=== PATIENT | female | born 1990 | race Caucasian/White ===

== ENCOUNTER 2016-10-09 09:41 | Emergency (ER) | payer OTHER ==
[~2016-10-09] VITALS: Ht 165.1 cm; Wt 80.0 kg
[2016-10-09 09:44] VITALS: Ht 165.1 cm; Wt 80.0 kg
--- NOTE | 2016-10-09 10:55 | ERD ---
ER Documentation Chief Complaint Date/Time DATE: 10/09/16 TIME: 10:49 Chief Complaint 37 WEEKS WITH DIARRHEA HPI This is a 26-year-old female presenting to the emergency department for diarrhea 1 day. Patient is a A2 and is currently 36 weeks with last menstrual period 02/01/2016. Patient has had one loose bowel movement every 2-2-1/2 hours with about 8-9 bowel movements since yesterday. No dark, bloody or mucoid stools. No fevers or chills. No dysuria or hematuria. Patient denies vomiting. No pelvic cramping or abdominal pain. Patient states she has history of one stillbirth and one miscarriage and was told that if she develops diarrhea for over 24 hours that she should go to the emergency room for evaluation. Patient states she has some irregular [place] type contractions. No regular contractions. Patient has no history of preeclampsia or gestational diabetes. Patient's PUBLIC TRANSIT SPECIALIST is Dr. Garcia with last appointment 4 days ago. ROS All systems reviewed and are negative except as per history of present illness. Medications Home Meds Reported Medications [none] No Conflict Check 11/20/10 Allergies Allergies: Coded Allergies: No Known Drug Allergy (Verified Allergy, Unknown, 10/09/16) PMhx/Soc History of Surgery: Yes (back surgery (cyst); caesarian section) Anesthesia Reaction: No Hx Neurological Disorder: No Hx Respiratory Disorders: No Hx Cardiac Disorders: No Hx Psychiatric Problems: No Hx Miscellaneous Medical Probl: No Hx Alcohol Use: No Hx Substance Use: No Hx Tobacco Use: No Smoking Status: Never smoker Physical Exam Vitals Vital Signs Date Time Temp Pulse Resp B/P Pulse Ox O2 Delivery O2 Flow Rate FiO2 10/09/16 09:44 98.1 99 20 113/70 99 Physical Exam Const: No acute distress, alert, smiling during exam Head: Atraumatic Eyes: Normal Conjunctiva ENT: Normal External Ears, Nose and Mouth. Neck: Full range of motion..~ No meningismus. Resp: Clear to auscultation bilaterally. No wheezing, rhonchi or crackles. Cardio: Regular rate and rhythm, no murmurs Abd: Soft, non tender, non distended. Normal bowel sounds Skin: No petechiae or rashes Back: No midline or flank tenderness. No CVA tenderness Ext: No cyanosis, or edema Neur: Awake and alert Psych: Normal Mood and Affect Procedures/MDM MDM: 26-year-old female presented to the emergency department for diarrhea 24 hours. Patient is currently 36 weeks last menstrual period 02/01/2016. Patient has had history of stillbirth and miscarriage in the past and was told by her PUBLIC TRANSIT SPECIALIST Dr. Garcia to go to the emergency room for any diarrhea over 24 hours. No dark or bloody stools. Patient denies dysuria or hematuria. No fevers or chills. No vomiting, abdominal pain or pelvic cramping. Patient does have [place] type contractions. No regular contractions. Patient will be sent to labor and delivery for evaluation. Spoke with nursing secretary on labor and delivery and was informed that patient will be discharged from labor and delivery. Departure Diagnosis: Primary Impression: Diarrhea Diarrhea type: unspecified type Qualified Code: R19.7 - Diarrhea, unspecified type Additional Impression: Weeks of gestation: 36 weeks Qualified Code: Z3A.36 - 36 weeks gestation of Condition: KEVIN Slater NP Oct 09, 2016 10:55
== END 2016-10-09 10:10 | disposition home or self-care (01) ==
LOC: FTE 09:41
DX: O99.89 Other specified diseases and conditions complicating pregnancy, childbirth and the puerperium (principal); R19.7 Diarrhea, unspecified; Z3A.36 36 weeks gestation of pregnancy
CPT/HCPCS: 99282

== ENCOUNTER 2016-10-09 11:33 | Outpatient (CLI) | payer OTHER ==
[~2016-10-09] VITALS: Ht 149.9 cm; Wt 74.0 kg
[2016-10-09 12:48] VITALS: BMI 33.0
[2016-10-09 13:11] VITALS: Ht 149.9 cm; Wt 74.0 kg
[2016-10-09 13:29] VITALS: BP 107/57; PULSE 106; RESP 18
[2016-10-09 13:46] LABS: ADD SCAN DIFF NO
[2016-10-09 13:47] LABS: BASOPHIL # 0.1 10^3/ul (0.0-0.1); BASOPHILS % 0.4 % (0.0-2.0); EOSINOPHILS # 0.1 10^3/ul (0.0-0.5); HEMATOCRIT 36.1 % (37.0-47.0); HEMOGLOBIN 12.3 g/dl (12.0-16.0); LYMPHOCYTES # 2.2 10^3/ul (0.8-2.9); LYMPHOCYTES % 17.5 % (15.0-51.0); MEAN CORPUSCULAR HEMOGLOBIN 33.2 pg (29.0-33.0); MEAN CORPUSCULAR HGB CONC 34.1 g/dl (32.0-37.0); MEAN CORPUSCULAR VOLUME 97.3 fl (82.0-101.0); MEAN PLATELET VOLUME 9.7 fl (7.4-10.4); MONOCYTE # 0.7 10^3/ul (0.3-0.9); MONOCYTES % 5.4 % (0.0-11.0); NEUTROPHILS % 72.4 % (39.0-77.0); PLATELET COUNT 227 10^3/UL (140-415); RED BLOOD COUNT 3.71 10^6/ul (4.20-5.40); WHITE BLOOD COUNT 12.4 10^3/ul (4.8-10.8)
[2016-10-09 14:06] LABS: ADD UMIC NO; URINE BILIRUBIN (Dip) NEGATIVE (NEGATIVE); URINE BLOOD (Dip) NEGATIVE (NEGATIVE); URINE COLOR LT. YELLOW (YELLOW); URINE GLUCOSE (Dip) NEGATIVE (NEGATIVE); URINE KETONES (Dip) NEGATIVE (NEGATIVE); URINE LEUKOCYTE ESTERASE (Dip) NEGATIVE (NEGATIVE); URINE NITRITE (Dip) NEGATIVE (NEGATIVE); URINE TOTAL PROTEIN (Dip) NEGATIVE (NEGATIVE); URINE UROBILINOGEN (Dip) 0.2 E.U./dL (0.1-1.0)
[2016-10-09 14:06] LABS: ALBUMIN 3.2 g/dl (3.3-4.9)
[2016-10-09 14:07] LABS: POTASSIUM 3.5 mmol/L (3.5-5.1)
[2016-10-09 14:09] LABS: ALBUMIN/GLOBULIN RATIO 0.94; BILIRUBIN,INDIRECT 0.3 mg/dl (0-1.1); BILIRUBIN,TOTAL 0.3 mg/dl (0.2-1.3); CREATININE 0.44 mg/dl (0.44-1.00); TOTAL PROTEIN 6.6 g/dl (6.1-8.1)
[2016-10-09 14:10] LABS: CALCIUM 8.4 mg/dl (8.4-10.2)
--- NOTE | 2016-10-09 14:45 | RADRPT ---
PROCEDURE: OB ultrasound for biophysical profile CLINICAL INDICATION: Biophysical profile. . TECHNIQUE: Multiple sonographic images of the pelvis were obtained. Transabdominal and transvagin al views are obtained. COMPARISON: 10/04/2016 FINDINGS: Single intrauterine gestation. Presentation: Cephalic. Placenta: Fundal - posterior No evidence of placental abruption. No evidence of placenta previa. Cervix is closed as visualized transvaginally measuring 5.1 cm. breathing movement = 2/2 tone = 2/2 motion = 2/2 SHAHZAD = 2/2 SHAHZAD = 17.5 cm, previously 20.2 cm heart rate: 148 beats per minute IMPRESSION: Single intrauterine gestation. Biophysical profile 01/25 RPTAT: AADD .Nima Cordero MD, Date Time Electronically viewed and signed by .Nima Cordero MD, on 10/09/2016 14:45 .B/
--- NOTE | 2016-10-09 18:07 | TRIAGE ---
OB Triage Datetime Report Generated by CPN: 10/09/2016 18:07 Datetime: 10/09/2016 14:50 Stage of : OB Triage Datetime: 10/09/2016 14:13 Comments: EFM OFF BY PT ; PT TOLD TO WAIT FOR ALL RESULTS TO BE IN, THEN I WILL CALL DR TYLER FOR D/ C ORDERS Datetime: 10/09/2016 13:30 Stage of : OB Triage Labor Evaluation Frequency: X1 Monitor Mode: External Duration (sec)2399: 60 Quality: Mild Heart Rate FHR Baseline Rate: 135 Monitor Mode: External US FHR Baseline Changes: No Baseline Change Variability: Moderate 6-25 bpm Accelerations: 15X15 Decelerations: None Category: Category I Datetime: 10/09/2016 12:58 Assessment Type: Admission Assessment Maternal Assessment Level of Consciousness: Fully Conscious DTR's/Clonus: DTRs 2+; No Clonus Headache: Denies Blurred Vision: No Respiratory Effort: Unlabored; Regular Rhythm; Equal Expansion Breath Sounds, Left: Clear and Equal Breath Sounds, Right: Clear and Equal Nausea/Vomiting: Denies RUQ Epigastric Pain: Denies Lower Extremities Edema: None Degree: None Upper Extremities Edema: None Degree: None Facial Edema: None Fall Risk Assessment History of Falling: (0) No Secondary Diagnosis: (0) No Ambulatory Aid: (0) Bedrest/Nurse Assist IV Therapy: (0) No Gait: (0) Normal/Bedrest/Immobile Mental Status: (0) Oriented to Own Ability Fall Score: 0 Fall Risk Score Definition: No Risk: No action required Datetime: 10/09/2016 12:57 Maternal Assessment Level of Consciousness: Fully Conscious Headache: Denies RUQ Epigastric Pain: Denies Datetime: 10/09/2016 12:56 Time of Arrival: 10/09/2016 11:32 EGA: 35.5 Arrived By: Ambulatory Arrived From: Emergency Dept Movement: Present Contractions: Denies/Absent Rupture of Membranes: Denies Vaginal Bleeding: None Vaginal Discharge: Present Recent Sexual Intercouse: Denies Abdominal Trauma: Not Applicable Patient Complaints: Nausea; Other Additional Patient Complaints: DIARRHEA LAST LOOSE STOOL AT 0700. PRESENTED AND CLEARED IN ER. SEN T TO OB TRIAGE FOR CLEARANCE Time Provider Notified: 10/09/2016 12:00 Provider Notified: tyler here Initial Plan: CBC/CMP/CL/BPP/ SHAHZAD SEEN BY DR SCOTT
== END 2016-10-09 15:08 | disposition home or self-care (01) ==
LOC: OBT 11:33 → L-D 11:33 → OBT 15:08
PROVIDERS: ATTEND Specialist
DX: O26.893 Other specified pregnancy related conditions, third trimester (principal); R19.7 Diarrhea, unspecified; Z3A.35 35 weeks gestation of pregnancy
CPT/HCPCS: 76817; 76818; 80053; 81003; 85025; Z7500; G0463

== ENCOUNTER 2016-10-25 11:41 | Inpatient (IN) | payer OTHER ==
[~2016-10-25] VITALS: Ht 149.9 cm; Wt 74.0 kg
[2016-10-25] MEDS ORDERED: PRENAT PO (11:51)
[2016-10-25] MEDS ORDERED: CHOL400T10 PO (11:51)
[2016-10-25] MEDS ORDERED: OXYTOCIN 30 UNITS/LR 500 ML IV PRN (12:00)
[2016-10-25] MEDS ORDERED: METHYLERGONOVINE 0.2 MG INJ IM PRN (12:00)
[2016-10-25] MEDS ORDERED: CARBOPROST 250 MCG INJ IM PRN (12:00)
[2016-10-25] MEDS ORDERED: MISOPROSTOL 200 MCG TAB PR PRN (12:00)
[2016-10-25] MEDS ORDERED: CEFAZOLIN 2 GM/50 ML (PMX) 50 ML IVPB SCH (12:00)
[2016-10-25] MEDS ORDERED: OXYTOCIN 30 UNITS/LR 500 ML IV SCH (12:00)
[2016-10-25 12:27] LABS: ADD SCAN DIFF NO
[2016-10-25 12:30] LABS: BASOPHIL # 0.1 10^3/ul (0.0-0.1); BASOPHILS % 0.5 % (0.0-2.0); EOSINOPHILS # 0.1 10^3/ul (0.0-0.5); EOSINOPHILS % 0.7 % (0.0-7.0); HEMATOCRIT 36.5 % (37.0-47.0); HEMOGLOBIN 12.8 g/dl (12.0-16.0); LYMPHOCYTES # 1.9 10^3/ul (0.8-2.9); LYMPHOCYTES % 13.4 % (15.0-51.0); MEAN CORPUSCULAR HEMOGLOBIN 33.4 pg (29.0-33.0); MEAN CORPUSCULAR HGB CONC 35.1 g/dl (32.0-37.0); MEAN CORPUSCULAR VOLUME 95.3 fl (82.0-101.0); MEAN PLATELET VOLUME 9.9 fl (7.4-10.4); MONOCYTE # 0.9 10^3/ul (0.3-0.9); MONOCYTES % 6.8 % (0.0-11.0); NEUTROPHIL # 10.3 10^3/ul (1.6-7.5); NEUTROPHILS % 74.5 % (39.0-77.0); PLATELET COUNT 224 10^3/UL (140-415); RED BLOOD COUNT 3.83 10^6/ul (4.20-5.40); RED CELL DISTRIBUTION WIDTH 12.9 % (11.5-14.5); WHITE BLOOD COUNT 13.8 10^3/ul (4.8-10.8)
[2016-10-25 12:46] LABS: INR 1.02; PROTIME 13.4 Sec (12.2-14.2)
[2016-10-25 12:47] LABS: PARTIAL THROMBOPLASTIN TIME 26.9 Sec (25.0-35.0)
[2016-10-25] MEDS: LACTATED RINGER'S 1,000 ML IV SCH ×2 (12:48→15:37)
--- NOTE | 2016-10-25 14:20 | PREOPHP ---
DATE OF ADMISSION: 10/25/2016 REASON FOR ADMISSION: She is admitted today from the [facility] by Dr. Lara, perinatologist for a repeat at 38 weeks gestation. HISTORY OF PRESENT ILLNESS: This is a 25-year-old female, 4, para 1, who had a fo r her previous baby at 33 weeks gestation in [place]. She gave to a baby boy that weighed 4 pounds 7 ounces. Her EDC in this has been confirmed by serial ultrasounds by the [facility] pren atal group to be 11/08/2016. She had to be under close surveillance because she had a previous stil lbirth, as well as the above-mentioned premature baby. Today during the NST a lone contracture was seen, followed by several variable decelerations and Dr. Lara has the opinion of delivering her now . She has had a previous section and had agreed to have a repeat section and sche duled actually at 39 weeks, next week. During the , has been treated with [place] 1 amp int ramuscularly weekly and aspirin [address] up to 36 and 1/2 weeks' gestation. PAST MEDICAL HISTORY: She denies any medical problems including diabetes, cardiovascular disease, h eart disease, hypertension, kidney disease, liver disease, thyroid disease, or neurological problems . ALLERGIES: NO KNOWN ALLERGIES. OBSTETRICAL HISTORY: She had a spontaneous in 2014. She had the above-mentioned section at 33 weeks' gestation in 08/2011 at [place]. Previously, she has had a baby stillborn at 29 weeks in 10/2010. SOCIAL HISTORY: The patient is single. 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 She denies the use of tobacco, alco hol, or illegal drugs. FAMILY HISTORY: Entirely unremarkable. REVIEW OF SYSTEMS: A 12-point review of systems is noncontributory. PHYSICAL EXAMINATION: GENERAL: Well-developed and nourished, in no distress, alert and oriented x3 with a height of 4 fee t 11 inches. Last weight was 165 pounds. VITAL SIGNS: Showed temperature to be 98, blood pressure 105/62, respirations 16 per minute. Pulse is 80 per minute, regular. HEENT: Within normal limits. Pupils are PERRLA. NECK: Supple. The thyroid is nonpalpable. There is no lymphadenopathy. LUNGS: Clear to percussion and auscultation. HEART: Normal sinus rhythm without a murmur. BREASTS: Show no masses or lumps. Nipples are normal. ABDOMEN: Soft. The uterus enlarged up to 36 cm above the pubic bone. heart rate is category 1. PELVIC: Normal external genitalia. Cervix is closed and long. Membranes are intact. EXTREMITIES: Examination of lower extremities is within normal limits. NEUROLOGIC: Examination also normal. IMPRESSION: Thirty-eight weeks' gestation, previous section. The patient had several bare ly decelerations during the NST today and is to be delivered by repeat . Dictated By: LILIANE LI/JADIEL Conf#: [id number] DID#: [id number]
[2016-10-25 20:08] VITALS: BP 105/78; PULSE 75; RESP 17
[2016-10-25] MEDS ORDERED: OXYTOCIN 10 UNIT INJ ONE ×2 (20:49)
[2016-10-25] MEDS ORDERED: ONDANSETRON 4 MG INJ ONE (20:49)
[2016-10-25] MEDS ORDERED: morphine SULFATE/PF (10 MG/10 ML) INJ ONE (20:49)
[2016-10-25] MEDS ORDERED: PHENYLephrine (100 MCG/ML) 5ML SYG ONE ×2 (21:19→21:31)
--- NOTE | 2016-10-25 22:58 | HP ---
Date/Time of Note Date/Time of Note DATE: 10/25/16 TIME: 22:49 OB - History Hx of Present Free Text/Dictation 25y.o A1 at 38weeks with 1 previous section with irregular uterine contractions and shows prolong variable decelerations admitted for repeat section Past Family/Social History * Past Medical, Surgical, Family and Obstetric Histories reviewed from chart. OB Admission Exam Vital Signs Vital Signs Vital Signs Date Time Temp Pulse Resp B/P Pulse Ox O2 Delivery O2 Flow Rate FiO2 10/25/16 20:08 98.0 75 17 105/78 Room Air Physical Exam HEENT: WNL Heart: Rhythm Normal Lungs: Clear, Equal Abdomen: WNL Extremities: Normal Reflexes: Normal Cervical Dilatation: other Effacement: Other Station: Other Membranes: Intact Amniotic Fluid: Unevaluable Heart Rate: 140's Decelerations: Variable Decelerations Varibility: Moderate Contractions on Admission: 6-10 Minutes Apart Intensity: Mild Last 72 hours Lab Results CBC & BMP 10/25/16 12:05 OB Assessment/Plan Reason for admission: other (previous cesaarean section in early labor) Plan: Section BRIGIDA SCOTT MD October 25, 2016 22:58
--- NOTE | 2016-10-25 23:21 | DELSUM ---
Delivery Summary A-C Datetime Report Generated by CPN: 10/25/2016 23:21 DELIVERY PERSONNEL Tracer Bullet Charging Machine Operator: Long, Ghazal MATERNAL INFORMATION Delivery Anesthesia: Spinal Medications in Delivery: SEE ANESTHESIA RECORDS Estimated Blood Loss (ml): 558 Placenta Cultured: No Maternal Complications: Other Other Maternal Complications: VARIABLES ON NST/PREVIOUS STILLBIRTH AND MISCARRIAGE; PREV C/S X1 LABOR SUMMARY EDC: 11/08/2016 00:00 No. Babies in Womb: 1 Attempted: No Labor Anesthesia: Intrathecal LABOR INFORMATION Reason for Induction: Not Applicable Oxytocin: N/A Group B Beta Strep: Negative Antibiotics # of Doses: 1 Antibiotics Time of Last Dose: 10/25/2016 20:55 Steroids Given: None Reason Steroids Not Administered: Not Applicable MEMBRANES Membranes Rupture Method: Artificial Rupture of Membranes: 10/25/2016 21:20 Length of Rupture (hr): 0.03 Amniotic Fluid Color: Bloody Amniotic Fluid Amount: Moderate Amniotic Fluid Odor: None STAGES OF LABOR Stage 3 hr: 0 Stage 3 min: 1 CSECTION DELIVERY Primary Indication: Repeat Elective Other Secondary Indication: VARIABLES CSection Urgency: Non Elective CSection Incidence: Repeat Labor: No Labor Elective: Nonelective CSection Incision: Lower Uterine Transverse BABY A INFORMATION Delivery Date/Time: 10/25/2016 21:22 Method of Delivery: Born in Route : No : N/A Forceps: N/A Vacuum Extraction: N/A Shoulder Dystocia : No SHOULDER DYSTOCIA BABY A Delivery Date/Time: 10/25/2016 21:22 PRESENTATION/POSITION BABY A Presentation: Cephalic Cephalic Presentation: Vertex Vertex Position: Right Occipital Posterior Breech Presentation: N/A PLACENTA INFORMATION BABY A Placenta Delivery Time : 10/25/2016 21:23 Placenta Method of Delivery: Manual Removal Placenta Status: Delivered SCORES BABY A Heart Rate 1 min: >100 bpm Resp Effort 1 min: Good Cry Reflex Irritability 1 min: Cough/Sneeze/Pulls Away Muscle Tone 1 min: Active Motion Color 1 min: Body [place], Extremit Blue Resuscitation Effort 1 min: Tactile Stimulation SCORE 1 MIN: 9 Heart Rate 5 min: >100 bpm Resp Effort 5 min: Good Cry Reflex Irritability 5 min: Cough/Sneeze/Pulls Away Muscle Tone 5 min: Active Motion Color 5 min: Body [place], Extremit Blue Resuscitation Effort 5 min: Tactile Stimulation SCORE 5 MIN: 9 INFORMATION BABY A Gestational Age at Delivery: 38.0 Gestational Status: Early Term- 37- 38.6 Weeks Outcome : Liveborn Condition : Stable Infant Sex: Female IDENTIFICATION/MEDS BABY A ID Band Number: [id number] ID Band Location: Right Leg; Left Arm Sensor Applied: Yes Sensor Number: [id number] Sensor Location : Cord Clamp Vitamin K Given : Not Given Erythromycin Given: Not Given WEIGHT/LENGTH BABY A Birthweight (gm): 2760 Infant Weight (lb): 6 Infant Weight (oz): 1 Infant Length (in): 18.00 Infant Length (cm): 45.72 CORD INFORMATION BABY A No. Cord Vessels: 3 Nuchal Cord : Around Neck x1, Tight Cord Blood Taken: Yes Suction: Mouth; Nose ASSESSMENT BABY A Complications: None Physical Findings at Delivery: Within Normal Limits; Other Physical Findings- Other: apprentice stylist to see vaginal area Infant Respirations: Appears Normal Deblocker/ALS Called : No Care By: rama alfaro Transferred To: Remains with Mother
[2016-10-26] VITALS (9 sets, daily range): BP systolic 86–110; BP diastolic 46–65; PULSE 83–95; RESP 18–20
[2016-10-26] MEDS ORDERED: OXYCODONE/ACETAMINOPHEN (5/325) TAB PO PRN ×2 (01:30)
[2016-10-26] MEDS ORDERED: METHYLERGONOVINE 0.2 MG INJ IM PRN (01:30)
[2016-10-26] MEDS ORDERED: MISOPROSTOL 200 MCG TAB PR PRN (01:30)
[2016-10-26] MEDS ORDERED: OXYTOCIN 30 UNITS/LR 500 ML IV PRN (01:30)
[2016-10-26] MEDS ORDERED: DIPHENHYDRAMINE 50 MG INJ IV PRN ×2 (01:30→04:00)
[2016-10-26] MEDS ORDERED: ONDANSETRON 4 MG INJ IV PRN ×2 (01:30→04:00)
[2016-10-26] MEDS ORDERED: CARBOPROST 250 MCG INJ IM PRN (01:30)
[2016-10-26] MEDS ORDERED: LANOLIN 7 GM TUBE TOP PRN (01:30)
[2016-10-26] MEDS ORDERED: ZOLPIDEM 5 MG TAB PO PRN (01:30)
[2016-10-26] MEDS: LACTATED RINGER'S 1,000 ML IV SCH ×2 (03:07→10:56)
[2016-10-26] MEDS ORDERED: morphine 2 MG INJ IV PRN (04:00)
[2016-10-26] MEDS ORDERED: NALOXONE (0.4 MG/ML) INJ IV PRN (04:00)
[2016-10-26] MEDS ORDERED: KETOROLAC 30 MG INJ IV PRN (04:00)
[2016-10-26] MEDS: IBUPROFEN 600 MG TAB PO SCH ×4 (06:00→23:34)
[2016-10-26 08:28] LABS: ADD SCAN DIFF NO
[2016-10-26 08:49] LABS: BASOPHILS % 0.2 % (0.0-2.0); EOSINOPHILS % 0.2 % (0.0-7.0); HEMATOCRIT 34.6 % (37.0-47.0); HEMOGLOBIN 11.5 g/dl (12.0-16.0); LYMPHOCYTES # 1.9 10^3/ul (0.8-2.9); MEAN CORPUSCULAR HGB CONC 33.2 g/dl (32.0-37.0); MEAN CORPUSCULAR VOLUME 96.4 fl (82.0-101.0); MEAN PLATELET VOLUME 10.3 fl (7.4-10.4); MONOCYTE # 1.2 10^3/ul (0.3-0.9); NEUTROPHIL # 13.4 10^3/ul (1.6-7.5); NEUTROPHILS % 79.9 % (39.0-77.0); PLATELET COUNT 193 10^3/UL (140-415); RED BLOOD COUNT 3.59 10^6/ul (4.20-5.40); RED CELL DISTRIBUTION WIDTH 13.2 % (11.5-14.5); WHITE BLOOD COUNT 16.8 10^3/ul (4.8-10.8)
[2016-10-26] MEDS: SENNA/DOCUSATE NA (8.6MG/50MG) TAB PO SCH ×2 (09:47→21:20)
--- NOTE | 2016-10-26 23:31 | PN ---
Date/Time of Note Date/Time of Note DATE: 10/26/16 TIME: 23:30 OB Subjective Subjective Subjective no flatus or urination yet OB Objective Objective Objective vss afebrile abdomen soft wound ddry lochia min calf neg for tenderness OB Assessment/Plan Other Assessment: stable post c/s #1 Other plan: as ordered BRIGIDA SCOTT MD October 26, 2016 23:31
[2016-10-27 04:00] VITALS: BP 100/61; PULSE 83; RESP 20
[2016-10-27] MEDS: IBUPROFEN 600 MG TAB PO SCH ×4 (05:35→23:44)
[2016-10-27 08:00] VITALS: BP 88/48; PULSE 76; RESP 17
--- NOTE | 2016-10-27 08:49 | PN ---
Date/Time of Note Date/Time of Note DATE: 10/27/16 TIME: 08:48 OB Subjective Subjective Subjective Feels well.Up and about.In good spirits. OB Objective Objective Objective Afebrile WBC 16. Repeat cbc in AM. HEENT: WNL Heart: Rhythm Normal Lungs: Clear Abdomen: WNL Extremities: Normal Reflexes: Normal LILIANE MACHUCA MD October 27, 2016 08:49
[2016-10-27] MEDS: SENNA/DOCUSATE NA (8.6MG/50MG) TAB PO SCH ×2 (09:41→21:27)
[2016-10-27] MEDS ORDERED: MEASLES,MUMPS,RUBELLA VACCINE INJ SC* ONE (12:00)
[2016-10-27 16:00] VITALS: BP 96/55; PULSE 87; RESP 16
[2016-10-27 20:15] VITALS: BP 98/61; PULSE 95; RESP 18
[2016-10-28 04:00] VITALS: BP 108/53; PULSE 79; RESP 18
[2016-10-28] MEDS: IBUPROFEN 600 MG TAB PO SCH ×2 (05:55→12:20)
--- NOTE | 2016-10-28 07:13 | OPR ---
DATE OF OPERATION: 10/27/2016 PREOPERATIVE DIAGNOSIS: , 38 weeks, with a previous section, in early labor, with a category 2 heart tracing. POSTOPERATIVE DIAGNOSIS: , 38 weeks, with a previous section, in early labor, wit h a category 2 heart tracing. Delivered normal . OPERATION PERFORMED: Repeat low transverse section. ANESTHESIOLOGIST: Refer to the chart ANESTHESIA: Spinal. EXPANDED FUNCTION DENTAL ASSISTANT: Refer to the chart. ESTIMATED BLOOD LOSS: mL. PROCEDURE: Under appropriate induction of spinal anesthesia, the patient was placed in the supine p osition. Abdominal wall was prepped and draped in usual aseptic manner. A transverse incision was made along the previous incisional scar. Scar tissue was excised. Incision was carried down throug h the subcutaneous tissue to the anterior rectus fascia which was incised transversely the length of the incision. Sammy clamps were applied on the fascial edge, thus creating the fascial flap rectus muscles split and peritoneal cavity was entered. Lower portion of the uterus was exposed. A transverse incision was made above the uterovesical reflection. Incision carried down through th is layer by layer until reached the amniotic membrane ruptured, revealing clear amniotic fluid and n ormal was born from the left occiput transverse position. Mouth and nose were cleaned and co rd was clamped and cut, handed to the respiratory care personnel for further care. Cord blood was o btained. Placenta was removed manually. Uterus was exteriorized and cavity was completely explored . Uterine incision was closed using #1 chromic catgut in continuous manner, and second layer using 0 chromic catgut in continuous manner. No bleeder was noted. Sponge count taken which was correct. Abdominal cavity was irrigated. Uterus was relocated in the abdominal cavity. Sponge count taken which was correct and parietal peritoneum was closed using 0 chromic catgut in continuous manner. Muscle closed with 0 chromic catgut in continuous manner. Fascia closed with #1 Vicryl in continuou s manner in 2 segments and subcutaneous tissue was irrigated. This layer was approximated with a 2- 0 plain in continuous manner. Skin closed with a 3-0 Monocryl in subcuticular manner. The Steri-St rips were applied. Pressure dressing applied. Estimated blood loss approximately mL. Patient withstood procedure and was sent to recovery room in good condition. Dictated By: SHOLA MCNULTY/JADIEL Conf#: [id number] DID#: [id number] CC: LILIANE MACHUCA MD;*EndCC*
[2016-10-28 08:00] VITALS: BP 106/59; PULSE 85; RESP 19
[2016-10-28 08:17] LABS: ADD SCAN DIFF NO
[2016-10-28 08:35] LABS: BASOPHILS % 0.3 % (0.0-2.0); EOSINOPHILS # 0.2 10^3/ul (0.0-0.5); EOSINOPHILS % 1.6 % (0.0-7.0); HEMATOCRIT 34.5 % (37.0-47.0); HEMOGLOBIN 11.3 g/dl (12.0-16.0); LYMPHOCYTES # 1.8 10^3/ul (0.8-2.9); LYMPHOCYTES % 16.5 % (15.0-51.0); MEAN CORPUSCULAR HEMOGLOBIN 32.3 pg (29.0-33.0); MEAN CORPUSCULAR HGB CONC 32.8 g/dl (32.0-37.0); MEAN CORPUSCULAR VOLUME 98.6 fl (82.0-101.0); MONOCYTE # 0.7 10^3/ul (0.3-0.9); MONOCYTES % 6.6 % (0.0-11.0); PLATELET COUNT 216 10^3/UL (140-415); RED CELL DISTRIBUTION WIDTH 13.3 % (11.5-14.5); WHITE BLOOD COUNT 10.9 10^3/ul (4.8-10.8)
--- NOTE | 2016-10-28 08:36 | PD.PPDC ---
SUPERVISOR SANDING Discharge Instruction Diagnosis Final Diagnosis: Term . Previous Condition Patient Condition: Good Diet Diet: Resume Regular Diet Activity/Restrictions Activity: Normal Activity May Shower Restrictions: No Lifting No Sexual Activity Nothing in the Vagina No [place] Wound/Drain Care Instructions Wound/Drain Care Instructions: Remove Steri Strips in 1 week Keep clean and dry Follow-up Follow-up with Physician: 1, Week/Weeks Return to clinic for WIRE PREPARATION WORKER Instructions: Fever greater than 101 Worsening abdominal pain Excessive Vaginal Bleeding Unable to tolerate diet Surgical Instructions: Incisional Drainage Incisional Redness LILIANE MACHUCA MD October 28, 2016 08:36
[2016-10-28] MEDS ORDERED: DIPHTH/TET/ACEL PERTUSS (ADULT) 0.5 ML VIAL IM* ONE (09:00)
--- NOTE | 2016-10-28 11:16 | DS ---
DATE OF ADMISSION: 10/25/2016 DATE OF DISCHARGE: 10/28/2016 FINAL DIAGNOSIS: A 38 weeks' gestation. In active labor. Previous . The patient was operated on by Dr. Reagan Scott. SUMMARY: This is a 26-year-old female with a history of previous section and a stillbirth. She came in active labor at 38 weeks' gestation. She was operated on by Dr. Reagan Scott. She had a baby girl, had scores of 8 and 9. Postoperatively, both mother and baby have done well. T wyatt, the mother is on the third day postop. She is passing gases well, has no problems and is eage r to go home. The incision looks well with no signs of infection. She is discharged home with written instructions. She will be on a regular diet. She is to make an appointment to follow up with me in the office in 1 week. She was given a prescription for Percoce t 60 tablets and Motrin 800 mg, 60 tablets, to take one of each every 6 hours p.r.n. pain. She was discharged in good condition. Dictated By: LILIANE LI/NTS Conf#: [id number] DID#: [id number] CC: REAGAN SCOTT MD;*EndCC*
[2016-10-28] MEDS: SENNA/DOCUSATE NA (8.6MG/50MG) TAB PO SCH (12:20)
--- NOTE | 2016-10-28 23:04 | NSTRPT ---
NST Information Datetime Report Generated by CPN: 10/28/2016 23:04 Datetime: 10/25/2016 10:11 NST Information EGA: 38.0 Test Number: 9 Time on Monitor: 10/25/2016 10:34 Time off Monitor: 10/25/2016 11:23 NST Duration (Min): 49 Reason for NST: Previous Demise; Other Reason for NST Other: Positive AFP Test and Monitor Explained: Monitor Explained; Test Explained; Verbalized Understanding Pulse: 94 Resp: 18 SBP: 110 DBP: 62 Test Evaluation NST Interventions: Reposition Patient Patient States Movement: Present Contraction Frequency: occasional FHR Baseline : 150 Variability: Moderate 6-25bpm Accelerations: 15X15 Decelerations: Variable FHR Category: Category II NST Results: Questionable Comments: To u/s SHAHZAD-18.2 CM, cep, strip review by Dr Lara, recommended delivery, 1120-Call placed to Dr Pugh, report given and orders received to admit to L_D. Report day d to Valentina. POC explained to pt and states understanding and compliance. 1130-pt to L_D, denies fur ther questions at this time. Electronically Signed By E-Signature: with User ID: [email or web address] Datetime: 10/21/2016 10:46 NST Information EGA: 37.3 NST Duration (Min): 31 Datetime: 10/18/2016 11:00 NST Information EGA: 37.0 NST Duration (Min): 28 Datetime: 10/14/2016 10:05 NST Information EGA: 36.3 NST Duration (Min): 21 Datetime: 10/11/2016 10:33 NST Information EGA: 36.0 NST Duration (Min): 29 Datetime: 10/07/2016 09:07 NST Information EGA: 35.3 NST Duration (Min): 20 Datetime: 10/04/2016 10:40 NST Information EGA: 35.0 NST Duration (Min): 28 Datetime: 09/30/2016 10:15 NST Information EGA: 34.3 NST Duration (Min): 21 Datetime: 09/27/2016 13:28 NST Information EGA: 34.0 Datetime: 09/27/2016 13:15 NST Duration (Min): 51
== END 2016-10-28 13:15 | disposition home or self-care (01) | DRG 766 ==
LOC: L-D 11:41 → PP1 10-26 00:56 → EDSTATUS 11-08 11:39
PROVIDERS: ADMIT Specialist; ATTEND Specialist
PROC: 10D00Z1 Extraction of Products of Conception, Low, Open Approach (ICD-10-PCS; principal; 2016-10-27)
DX: O34.211 Maternal care for low transverse scar from previous cesarean delivery (principal); O76 Abnormality in fetal heart rate and rhythm complicating labor and delivery; Z3A.38 38 weeks gestation of pregnancy; Z37.0 Single live birth
CPT/HCPCS: 85025; 85610; 85730; 86592; 86850; 86900; 86901; 90715; 94760; J0690; J2274; J2370; J2405; J2590